=== PATIENT | female | born 1985 | race Two or more races ===

== ENCOUNTER 2022-03-04 17:10 | Emergency (ER) | payer OTHER ==
[~2022-03-04] VITALS: Ht 160 cm; Wt 54.4 kg
[2022-03-04] MEDS ORDERED: ZYRTEC10 M3 PO (19:41)
[2022-03-04] MEDS ORDERED: MEDROLPACK PO (19:41)
[2022-03-04] MEDS ORDERED: ZITHROMAX500 MG PO (19:41)
== END 2022-03-04 20:04 | disposition home or self-care (01) ==
LOC: ER 17:10
DX: A49.3 Mycoplasma infection, unspecified site (principal); J06.9 Acute upper respiratory infection, unspecified; Z20.822 Contact with and (suspected) exposure to COVID-19

== ENCOUNTER → 2022-03-04 | Emergency (ER) | payer OTHER ==
[~2022-03-04] MED LIST: MEDROLPACK PO; ZITHROMAX500 MG PO; ZYRTEC10 M3 PO
== END | disposition home or self-care (01) ==
LOC: ER 23:42
DX: A49.3 Mycoplasma infection, unspecified site (principal); J06.9 Acute upper respiratory infection, unspecified